=== PATIENT | male | born 1945 | race Two or more races ===

== ENCOUNTER → 2017-05-30 | Outpatient (CLI) | payer MEDICARE, OTHER ==
--- NOTE | 2017-05-31 07:50 | US ---
EXAMINATION TYPE: US kidneys/renal and bladder DATE OF EXAM: 05/30/2017 COMPARISON: CT abdomen and pelvis May 24, 2015 CLINICAL HISTORY: R10.9 Ashutosh FLank Pain C67.9 Bladder CA. Flank pain, history of bladder CA EXAM MEASUREMENTS: Right Kidney: 13.8 x 5.5 x 5.9 cm Left Kidney: 12.8 x 6.1 x 5.4 cm Right Kidney: wnl Left Kidney: Cyst lateral= 0.9 x 0.9 x 1.0 cm/ Hypoechoic lesion mid/lower pole= 0.9 x 0.6 x 1.0 cm Bladder: wnl Bilateral Jets seen: Yes Accessory spleen= 2.0 cm There is no evidence for hydronephrosis at this point in time bilaterally. No nephrolithiasis is see n. In the left kidney technologist otero 2 1.0 cm round anechoic lesions too small to further charac terize, no corresponding abnormality is seen on prior CT. Cortical thinning or infarct medially lower pole level left kidney seen better on CT than ultrasound images saved. The urinary bladder is anecho ic. Bilateral ureteral jets are seen. Technologist incidentally otero a 2.0 cm splenule inferior to spleen towards end of study. IMPRESSION: No renal stones or hydronephrosis is evident bilaterally. Would advised ultrasound or other imaging f ollow-up in 6 months time to ensure nonspecific 1 cm lesions left kidney are not enlarging.
== END ==
LOC: RADUSMAIN 15:43
PROVIDERS: ATTEND Internal Medicine
DX: C67.9 Malignant neoplasm of bladder, unspecified (principal)
CPT/HCPCS: 76770

== ENCOUNTER → 2018-10-02 | Outpatient (CLI) | payer MEDICARE, OTHER ==
--- NOTE | 2018-10-03 01:22 | MR ---
EXAMINATION TYPE: MR lumbar spine wo con DATE OF EXAM: 10/02/2018 COMPARISON: None HISTORY: Low back pain TECHNIQUE: Multiplanar, multisequence images of the lumbar spine were acquired. Lumbar vertebra have normal alignment. There is no compression fracture. There is no lumbar disc dariana iation. The neural foramina are fairly well-maintained. The posterior elements are intact. Lumbar ner ve roots appear normal. There is no spinal stenosis. There is no lumbar paraspinal mass. IMPRESSION: Negative MR scan of the lumbar spine. No lumbar disc herniation or spinal stenosis. No fracture.
== END ==
LOC: RADMRIMAIN 20:42
PROVIDERS: ATTEND Internal Medicine
DX: M54.5 Low back pain (principal)
CPT/HCPCS: 72148

== ENCOUNTER → 2019-01-26 | Outpatient (CLI) | payer MEDICARE, OTHER ==
--- NOTE | 2019-01-26 21:27 | MR ---
EXAMINATION TYPE: MR thoracic spine wo con DATE OF EXAM: 01/26/2019 COMPARISON: NONE HISTORY: Pain in thoracic spine TECHNIQUE: Multiplanar, multisequence imaging of thoracic spine is performed without contrast FINDINGS: Spinal cord shows normal course, caliber, and signal as it courses the thoracic spine. Angel tebral body heights and alignment are satisfactory. Disc space heights are fairly well maintained. No large posterior disc herniations are seen on sagittal images. There is mild multilevel anterior spur ring. Bone marrow signal intensity is maintained. Review of the axial images begins at the T1-T2 level. There are tiny central disc protrusions mildly effacing anterior thecal sac T5-T6 and T6-T7 level on axial image 7 and 4 respectively. There is 9 mm round T2 hyperintense lesion laterally right kidney partially imaged axial S1 favoring simple thin-w alled cyst. Some nonspecific nodularity right adrenal gland is seen best coronal image 4. Left adrena l nodularity noted coronal image 3. Findings correlate with CT 2015 presumed stable. IMPRESSION: Mild multilevel spurring. Small posterior disc herniations midthoracic spine noted.
== END ==
LOC: RADMRIMAIN 19:37
PROVIDERS: ATTEND Internal Medicine
DX: M51.24 Other intervertebral disc displacement, thoracic region (principal)
CPT/HCPCS: 72146

== ENCOUNTER → 2020-05-26 | Outpatient (CLI) | payer MEDICARE, OTHER ==
--- NOTE | 2020-05-26 10:10 | FL ---
EXAMINATION TYPE: FL barium swallow DATE OF EXAM: 05/26/2020 CLINICAL INDICATION: 74-year-old male dysphasia, left-sided throat pain, R13.10. COMPARISON: None Total Fluoroscopy Time: 3 minutes 9 seconds. Total images: 57 FINDINGS: Repeat swallows demonstrates deep penetration with eventual coating of the vocal folds. No aspiration below the vocal folds seen. There is anterior endplate spondylosis at C4-C5 causing impression on the posterior wall of the hypop harynx and causing mild narrowing. No obstruction to the passage of contrast. Unable to exclude a rounded filling defect at this level. There is moderate hypertrophy of the cricopharyngeus and a tiny Zenker's diverticulum which transient ly fills. The thoracic portion as a normal course and caliber. Moderate tertiary peristaltic contractions are demonstrated and with the patient is supine or prone, there is slightly delayed clearance of contrast from the esophagus. The mucosa is normal and no persistent filling defect is encountered in the thoracic esophagus. There is a tiny hiatal hernia. However, Valsalva and positional maneuvers could not elicit any gastro esophageal reflux on this exam. Median sternotomy wires. IMPRESSION: 1. Repeat swallows demonstrated deep penetration with eventual coating of the vocal folds. Consider s peech pathology evaluation. 2. Unable to exclude a rounded filling defect/mucosal lesion at the level of the hypopharynx/upper ce rvical esophagus. Correlate with findings on endoscopy. Consider contrast enhanced CT of the neck. 3. Moderate anterior endplate spondylosis at C4-C5 mildly impressing on the posterior wall of the hyp opharynx. No obstruction. 4. Moderate hypertrophy of the cricopharyngeus and a tiny Zenker's diverticulum which transiently karlie ls. 5. Moderate tertiary peristaltic contractions. The thoracic esophagus otherwise appears normal. 6. Tiny hiatal hernia. Gastroesophageal reflux could not be produced on the current exam.
== END | disposition home or self-care (01) ==
LOC: RADUSWWP 08:49
PROVIDERS: ATTEND Otolaryngology
DX: K22.5 Diverticulum of esophagus, acquired (principal); K22.8 Other specified diseases of esophagus
CPT/HCPCS: 74220

== ENCOUNTER 2020-06-09 08:19 | Day surgery (SDC) | payer MEDICARE, OTHER ==
[2020-06-08 09:20] VITALS: BMI 30.1
[~2020-06-09 08:19] MED LIST: LACTATED RINGERS 1,000 ML IV SCH
[2020-06-09 08:52] VITALS: RESP 16; TEMP 97.6
[2020-06-09] MEDS ORDERED: LIDOCAINE 1% (10MG/ML) FOR IV START INTRADERMA ONE (08:54)
[2020-06-09 08:57] LABS: Glucose,Whole Blood 199 mg/dL (75-99)
[2020-06-09] MEDS ORDERED: PROPOFOL 10 MG/ML 20 ML VIAL IV ONE (08:59)
[2020-06-09] MEDS ORDERED: LIDOCAINE 1% INJ 10MG/ML (20 ML MDV) ONE (08:59)
--- NOTE | 2020-06-09 09:31 | P.PCN ---
Date of Procedure: 06/09/20 Description of Procedure: BRIEF HISTORY: Patient is a 74-year-old male presenting for outpatient EGD for evaluation of abnormal esophagram, abnormal imaging, GERD. Patient has been having some issues with swallowing, globus sensation and soreness in his throat. Esophagram performed in evaluation was abnormal patient was sent in for further evaluation. PROCEDURE PERFORMED: Esophagogastroduodenoscopy with biopsy. PREOPERATIVE DIAGNOSIS: Abnormal esophagram, abnormal imaging, GERD. ESTIMATED BLOOD LOSS: Minimal. IV sedation per anesthesia. PROCEDURE: After informed consent was obtained, the patient was brought into the endoscopy unit. IV sedation was administered by Anesthesia under continuous monitoring. Initially the Olympus GIF-190 video endoscope was inserted into the mouth. Esophagus intubated without any difficulty. It was gradually advanced into the stomach and duodenum and carefully examined. The bulb and the second part of the duodenum appeared normal, except for some mild scattered erythema suggestive of mild duodenitis with biopsies taken. The scope at this time was withdrawn to the stomach, adequately insufflated with air, and upon careful examination, mucosa of the antrum, body, cardia and the fundus appeared normal, except for some mild scattered erythema in the antrum and body suggestive of mild gastritis biopsies taken. The scope was then withdrawn into the esophagus. The GE junction was located at 41 cm from the incisors, with biopsies taken. A 1 cm hiatal hernia was noted. The esophagus appeared normal, except for a small Zenker diverticulum in the proximal esophagus. Biopsies of the midesophagus were taken. There were no erosions or ulcerations seen and the patient tolerated the procedure well. IMPRESSION: 1. Mild gastritis. 2. Mild Duodenitis. 3. Small hiatal hernia. 4. Small Zenker diverticulum. 5. Biopsies of the duodenum, antrum and body, GE junction and mid esophagus. RECOMMENDATIONS: The findings of this examination were discussed with the patient and his family. Okay to resume diet. Okay to resume medication. Would recommend a trial of resolving daily for 2 weeks without symptoms. Await pathology from biopsies.
[2020-06-09 09:45] VITALS: BP 159/75; PULSE 61
== END 2020-06-09 09:57 | disposition home or self-care (01) ==
LOC: ORWHC2ENDO 08:19
PROVIDERS: ATTEND Internal Medicine
DX: K29.50 Unspecified chronic gastritis without bleeding (principal); B96.81 Helicobacter pylori [H. pylori] as the cause of diseases classified elsewhere; K44.9 Diaphragmatic hernia without obstruction or gangrene; K22.5 Diverticulum of esophagus, acquired; K29.80 Duodenitis without bleeding; K21.9 Gastro-esophageal reflux disease without esophagitis; I25.2 Old myocardial infarction; I25.10 Atherosclerotic heart disease of native coronary artery without angina pectoris; I10 Essential (primary) hypertension; E78.5 Hyperlipidemia, unspecified; E11.9 Type 2 diabetes mellitus without complications; F17.200 Nicotine dependence, unspecified, uncomplicated; Z85.51 Personal history of malignant neoplasm of bladder; Z79.84 Long term (current) use of oral hypoglycemic drugs; Z79.82 Long term (current) use of aspirin; Z79.899 Other long term (current) drug therapy; Z95.1 Presence of aortocoronary bypass graft; Z98.41 Cataract extraction status, right eye; Z98.42 Cataract extraction status, left eye
CPT/HCPCS: 88305; 88342; 43239; J2001; J2704

== ENCOUNTER 2020-07-27 13:53 | Emergency (ER) | payer MEDICARE, OTHER ==
[2020-07-27 14:06] VITALS: TEMP 98.1
[2020-07-27] MEDS ORDERED: SODIUM CHLORIDE 0.9% 500 ML 500 ML IV STA (14:27)
[2020-07-27] MEDS ORDERED: FAMOTIDINE 20 MG/2 ML VIAL IV STA (14:28)
[2020-07-27 15:09] LABS: Basophils % (A) 0 %; Eosinophils # (A) 0.4 k/uL (0-0.7); Eosinophils % (A) 3 %; HCT 52.9 % (39.0-53.0); HGB 16.9 gm/dL (13.0-17.5); Lymphocytes # (A) 0.7 k/uL (1.0-4.8); Lymphocytes % (A) 5 %; MCH 31.7 pg (25.0-35.0); MCHC 31.9 g/dL (31.0-37.0); MCV 99.6 fL (80.0-100.0); Mean Platelet Volume 9.1; Monocytes # (A) 0.5 k/uL (0-1.0); Monocytes % (A) 4 %; Neutrophils # (A) 11.9 k/uL (1.3-7.7); Neutrophils % (A) 87 %; Platelet Count 160 k/uL (150-450); RBC 5.32 m/uL (4.30-5.90); RDW 12.6 % (11.5-15.5); WBC 13.6 k/uL (3.8-10.6)
--- NOTE | 2020-07-27 15:11 | ED ---
General Adult HPI <Mendel Del Angel - Last Filed: 07/27/20 17:47> - General Source: patient, family, EMS Mode of arrival: EMS Limitations: language barrier <Lizette Mack - Last Filed: 07/27/20 23:01> - General Chief complaint: Allergic Reaction Stated complaint: allergic reaction Time Seen by Provider: 07/27/20 14:09 - History of Present Illness Initial comments: Patient is a 74-year-old male, history of heart disease, diabetes, hypertension, bladder cancer, presenting to the emergency Department via EMS with complaints of a possible ALLERGIC reaction. Patient speaks very little Syriac, daughter is helping to translate. Patient was at Dr. Lay's office earlier today and did receive an injection of Rocephin and Toradol for a possible abscessed tooth. The daughter states shortly after the patient started having itching in his hands and his blood pressure dropped. Patient was given a tablet of xyzal to help, then developed some chest discomfort as well as some epigastric discomfort so they called EMS. Patient had open-heart surgery in 2015. He received his last BCG treatment for bladder cancer last month. He states prior to today he was feeling his normal self. He denies any recent fever, chills, shortness of breath, cough. He denies any lower abdominal pain, trouble with urination. He does admit to nausea, no vomiting or diarrhea. Patient received some fluids and 50 mg of Benadryl and the EMS prior to arrival. He has no further complaints at this time. Upon arrival to the ER, patient's blood pressure is 101/59, rest of vitals are within normal limits. (Lizette Mack) - Related Data Home Medications Medication Instructions Recorded Confirmed Acetaminophen Tab [Tylenol] 650 mg PO Q4H PRN 11/25/15 06/08/20 Aspirin 81 mg PO DAILY 11/25/15 06/08/20 Metoprolol Succinate [Toprol XL] 50 mg PO DAILY 11/25/15 06/08/20 Antivert(Dose Unknown) 1 tab PO DIRECTED PRN 06/08/20 06/08/20 Atorvastatin [Lipitor] 20 mg PO HS 06/08/20 06/08/20 Omeprazole [PriLOSEC] 20 mg PO DIRECTED PRN 06/08/20 06/08/20 Sertraline [Zoloft] 50 mg PO HS 06/08/20 06/08/20 lisinopriL [Zestril] 5 mg PO QAM 06/08/20 06/08/20 metFORMIN HCL [Glucophage] 500 mg PO BID 06/08/20 06/08/20 Allergies Allergy/AdvReac Type Severity Reaction Status Date / Time No Known Allergies Allergy Verified 06/09/20 08:45 Review of Systems ROS Other: All systems not noted in ROS Statement are negative. <Mendel Del Angel - Last Filed: 07/27/20 17:47> ROS Other: All systems not noted in ROS Statement are negative. <Lizette Mack - Last Filed: 07/27/20 23:01> ROS Statement: Those systems with pertinent positive or pertinent negative responses have been documented in the HPI. Past Medical History Past Medical History: Coronary Artery Disease (CAD), Cancer, Diabetes Mellitus, GERD/Reflux, Hyperlipidemia, Hypertension, Myocardial Infarction (CA), Vascular Disorder Additional Past Medical History / Comment(s): HX BLADDER Cancer-(gets BCG tx) BACK PAIN. PAD. PT DRINKS 10 CUPS OF YI TEA OR COFFEE DAILY. BE showed filling defect, essential tremors Last Myocardial Infarction Date:: 1997 History of Any Multi-Drug Resistant Organisms: None Reported Past Surgical History: Bladder Surgery, Coronary Bypass/CABG, Heart Catheterization Additional Past Surgical History / Comment(s): BLADDER CA, BLADDER POLYPS REMOVED. CYSTOSCOPY YEARLY. Cardiac CATH 11/2015. CABG X5 VESSEL DONE NOVEMBER 2015, ABD AORTOGRAM W/ RUNOFF 05/02/16, 05-09-16-LT FEM-POP ARTHRECTOMY/PTBA,STENT LT SFA. Ashutosh cataracts 2015, Past Anesthesia/Blood Transfusion Reactions: Motion Sickness Past Psychological History: No Psychological Hx Reported Smoking Status: Current every day smoker Past Alcohol Use History: None Reported Past Drug Use History: None Reported - Past Family History Brother(s) Family Medical History: Cancer Sister(s) Family Medical History: Deep Vein Thrombosis (DVT) <Lizette Mack - Last Filed: 07/27/20 23:01> General Exam Limitations: language barrier <Lizette Mack - Last Filed: 07/27/20 23:01> - General Exam Comments Initial Comments: GENERAL: Patient is well-developed and well-nourished. Patient looks slightly diaphoretic, fatigued, in no acute distress. HEAD: Atraumatic, normocephalic. EYES: Pupils equal round and reactive to light, extraocular movements intact, sclera anicteric, conjunctiva are normal. Eyelids were unremarkable. ENT: TMs normal, nares patent, oropharynx clear without exudates. Moist mucous membranes. NECK: Normal range of motion, supple without lymphadenopathy or JVD. LUNGS: Unlabored respirations. Breath sounds clear to auscultation bilaterally and equal. No wheezes rales or rhonchi. HEART: Regular rate and rhythm without murmurs, rubs or gallops. ABDOMEN: Very mild epigastric discomfort, no other static and abdominal pain present. Soft, normoactive bowel sounds. No guarding, no rebound. No masses appreciated. : Deferred MUSCULOSKELETAL: Normal extremities with adequate strength and normal range of motion, no pitting or edema. No clubbing or cyanosis. NEUROLOGICAL: Patient is alert and oriented x 3. Motor and sensory are also intact. Cranial nerves II through XII grossly intact. Symmetrical smile. Normal speech, normal gait. PSYCH: Normal mood, normal affect. SKIN: Warm, Dry, normal turgor, no rashes or lesions noted. (Lizette Mack) Course <Mendel Del Angel - Last Filed: 07/27/20 17:47> Vital Signs 07/27/20 07/27/20 07/27/20 14:01 15:06 15:17 Temperature 98.1 F Pulse Rate 71 68 Respiratory 18 18 16 Rate Blood Pressure 101/59 128/72 O2 Sat by Pulse 98 98 Oximetry 07/27/20 07/27/20 07/27/20 16:00 17:00 17:50 Temperature 98.1 F Pulse Rate 65 66 66 Respiratory 16 16 16 Rate Blood Pressure 122/73 133/70 133/70 O2 Sat by Pulse 98 98 98 Oximetry - Reevaluation(s) Reevaluation #1: 07/27/20 17:47 PG supervision: I proceeded [id number] evaluation the patient. Patient did present with complaints of possible ALLERGIC reaction after getting Rocephin in his doctor's office patient has a history ofmultiple medical issues. Patient is awake alert oriented. No acute distress at this time. I did discuss the case with the son-in-law who is Dr. Lay who was in the room with the patient. Patient be discharged with his son-in-law. Do the assessment and plan. (Mendel Del Angel) EKG Findings - EKG Comments: EKG Findings:: Normal sinus rhythm, left axis deviation, incomplete RBBB, no signs of acute ischemia. Compared to previous on 05/09/2016. Ventricular rate 69, NV 192, QT 358. <Lizette Mack - Last Filed: 07/27/20 23:01> Medical Decision Making - Lab Data Result diagrams: 07/27/20 14:56 07/27/20 15:50 <Mendel Del Angel - Last Filed: 07/27/20 17:47> - Lab Data Result diagrams: 07/27/20 14:56 07/27/20 15:50 <Lizette Mack - Last Filed: 07/27/20 23:01> - Medical Decision Making Patient is a 74-year-old male here for possible ALLERGIC reaction to IM Toradol and Rocephin given today at his PCPs office. Patient received 50 mg of Benadryl and the EMS prior to arrival. Patient was slightly diaphoretic, fatigued upon arrival, his vitals were stable. His EKG showed no acute findings. Blood work revealed a slight leukocytosis at 13.6, coags are normal, troponin is normal, kidney function is normal. Chest x-ray shows no acute findings, urine is normal. Patient received some fluids, Pepcid, reports improvement of symptoms. I did discuss these findings with the patient and his father in law, Dr. Lay who did come in to see the patient, and I did recommend observation over patient is feeling well like to go home. Dr. Lay is also okay with patient being discharged and states he will reevaluate the patient tonight. Strict return parameters were discussed with them and they both verbalized understanding. Case discussed with Dr. Del Angel. (Lizette Mack) - Lab Data Lab Results 07/27/20 07/27/20 07/27/20 Range/Units 14:56 14:56 14:56 WBC 13.6 H (3.8-10.6) k/uL RBC 5.32 (4.30-5.90) m/uL Hgb 16.9 (13.0-17.5) gm/dL Hct 52.9 (39.0-53.0) % MCV 99.6 (80.0-100.0) fL MCH 31.7 (25.0-35.0) pg MCHC 31.9 (31.0-37.0) g/dL RDW 12.6 (11.5-15.5) % Plt Count 160 (150-450) k/uL Neutrophils % 87 % Lymphocytes % 5 % Monocytes % 4 % Eosinophils % 3 % Basophils % 0 % Neutrophils # 11.9 H (1.3-7.7) k/uL Lymphocytes # 0.7 L (1.0-4.8) k/uL Monocytes # 0.5 (0-1.0) k/uL Eosinophils # 0.4 (0-0.7) k/uL Basophils # 0.0 (0-0.2) k/uL PT 10.6 (9.0-12.0) sec INR 1.0 (<1.2) APTT 22.7 (22.0-30.0) sec Sodium (137-145) mmol/L Potassium (3.5-5.1) mmol/L Chloride (98-107) mmol/L Carbon Dioxide (22-30) mmol/L Anion Gap mmol/L BUN (9-20) mg/dL Creatinine (0.66-1.25) mg/dL Est GFR (CKD-EPI)AfAm (>60 ml/min/1.73 sqM) Est GFR (CKD-EPI)NonAf (>60 ml/min/1.73 sqM) Glucose (74-99) mg/dL Calcium (8.4-10.2) mg/dL Magnesium (1.6-2.3) mg/dL Total Bilirubin (0.2-1.3) mg/dL AST (17-59) U/L ALT (4-49) U/L Alkaline Phosphatase (38-126) U/L Troponin I <0.012 (0.000-0.034) ng/mL Total Protein (6.3-8.2) g/dL Albumin (3.5-5.0) g/dL Lipase (23-300) U/L Urine Color Urine Appearance (Clear) Urine pH (5.0-8.0) Ur Specific [place] (1.001-1.035) Urine Protein (Negative) Urine Glucose (UA) (Negative) Urine Ketones (Negative) Urine Blood (Negative) Urine Nitrite (Negative) Urine Bilirubin (Negative) Urine Urobilinogen (<2.0) mg/dL Ur Leukocyte Esterase (Negative) Urine RBC (0-5) /hpf Urine WBC (0-5) /hpf Ur Squamous Epith Cells (0-4) /hpf Hyaline Casts (0-2) /lpf Urine Mucus (None) /hpf 07/27/20 07/27/20 Range/Units 15:50 16:03 WBC (3.8-10.6) k/uL RBC (4.30-5.90) m/uL Hgb (13.0-17.5) gm/dL Hct (39.0-53.0) % MCV (80.0-100.0) fL MCH (25.0-35.0) pg MCHC (31.0-37.0) g/dL RDW (11.5-15.5) % Plt Count (150-450) k/uL Neutrophils % % Lymphocytes % % Monocytes % % Eosinophils % % Basophils % % Neutrophils # (1.3-7.7) k/uL Lymphocytes # (1.0-4.8) k/uL Monocytes # (0-1.0) k/uL Eosinophils # (0-0.7) k/uL Basophils # (0-0.2) k/uL PT (9.0-12.0) sec INR (<1.2) APTT (22.0-30.0) sec Sodium 137 (137-145) mmol/L Potassium 6.0 H (3.5-5.1) mmol/L Chloride 105 (98-107) mmol/L Carbon Dioxide 26 (22-30) mmol/L Anion Gap 6 mmol/L BUN 13 (9-20) mg/dL Creatinine 1.15 (0.66-1.25) mg/dL Est GFR (CKD-EPI)AfAm 74 (>60 ml/min/1.73 sqM) Est GFR (CKD-EPI)NonAf 64 (>60 ml/min/1.73 sqM) Glucose 137 H (74-99) mg/dL Calcium 9.5 (8.4-10.2) mg/dL Magnesium 1.4 L (1.6-2.3) mg/dL Total Bilirubin 2.3 H (0.2-1.3) mg/dL AST 47 (17-59) U/L ALT 19 (4-49) U/L Alkaline Phosphatase 64 (38-126) U/L Troponin I (0.000-0.034) ng/mL Total Protein 7.1 (6.3-8.2) g/dL Albumin 4.2 (3.5-5.0) g/dL Lipase 167 (23-300) U/L Urine Color Yellow Urine Appearance Cloudy (Clear) Urine pH 6.0 (5.0-8.0) Ur Specific [place] 1.019 (1.001-1.035) Urine Protein 1+ H (Negative) Urine Glucose (UA) Negative (Negative) Urine Ketones Negative (Negative) Urine Blood Negative (Negative) Urine Nitrite Negative (Negative) Urine Bilirubin Negative (Negative) Urine Urobilinogen <2.0 (<2.0) mg/dL Ur Leukocyte Esterase Trace H (Negative) Urine RBC 2 (0-5) /hpf Urine WBC 5 (0-5) /hpf Ur Squamous Epith Cells 1 (0-4) /hpf Hyaline Casts 44 H (0-2) /lpf Urine Mucus Moderate H (None) /hpf Disposition <Mendel Del Angel - Last Filed: 07/27/20 17:47> Is patient prescribed a controlled substance at d/c from ED?: No <Lizette Mack - Last Filed: 07/27/20 23:01> Clinical Impression: Allergic reaction to drug, Epigastric pain, Atypical chest pain Disposition: HOME SELF-CARE Condition: Stable Instructions (If sedation given, give patient instructions): Acute Nausea and Vomiting (ED) Additional Instructions: Please return to the Emergency Department if symptoms worsen or any other concerns. Increase her fluid intake over the next few days. Follow-up with PCP. Referrals: Lety Lay MD [Primary Care Provider] - 1-2 days
[2020-07-27 15:18] VITALS: RESP 16
[2020-07-27 15:18] LABS: Partial Thromboplastin Time 22.7 sec (22.0-30.0); Prothrombin Time 10.6 sec (9.0-12.0)
--- NOTE | 2020-07-27 15:56 | XR ---
EXAMINATION TYPE: XR chest 2V DATE OF EXAM: 07/27/2020 COMPARISON: NONE HISTORY: Allergic reaction. Chest pain. TECHNIQUE: Frontal and lateral views of the chest are obtained. FINDINGS: Overlying sternal wire and mediastinal clips are present. There is chronic parenchymal pete nges bilaterally without suspicious focal air space opacity, pleural effusion, or pneumothorax seen. The cardiac silhouette size is enlarged. Post CABG changes with mediastinal clips and sternal wire s are present. The osseous structures are intact. IMPRESSION: Chronic changes and cardiomegaly without acute pulmonary process.
[2020-07-27 16:09] LABS: Albumin 4.2 g/dL (3.5-5.0); Calcium 9.5 mg/dL (8.4-10.2); Magnesium 1.4 mg/dL (1.6-2.3); Total Bilirubin 2.3 mg/dL (0.2-1.3); Total Protein 7.1 g/dL (6.3-8.2)
[2020-07-27 16:12] LABS: Appearance,Urine Cloudy (Clear); Bilirubin,Urine Negative (Negative); Blood,Urine Negative (Negative); Color,Urine Yellow; Glucose,Urine (UA) Negative (Negative); Hyaline Casts,Urine 44 /lpf (0-2); Ketones,Urine Negative (Negative); Leukocyte Esterase,Urine Trace (Negative); Mucus,Urine Moderate /hpf; Nitrite,Urine Negative (Negative); Protein,Urine 1+ (Negative); RBC,Urine 2 /hpf (0-5); Specific Gravity,Urine 1.019 (1.001-1.035); Squamous Epithelial Cell,Urine 1 /hpf (0-4); Urobilinogen,Urine <2.0 mg/dL (<2.0); WBC,Urine 5 /hpf (0-5)
[2020-07-27 17:50] VITALS: BP 133/70; PULSE 66
== END 2020-07-27 17:53 | disposition home or self-care (01) ==
LOC: EC 13:53
DX: T45.0X1A Poisoning by antiallergic and antiemetic drugs, accidental (unintentional), initial encounter (principal); R07.89 Other chest pain; R10.13 Epigastric pain; D72.829 Elevated white blood cell count, unspecified; I25.10 Atherosclerotic heart disease of native coronary artery without angina pectoris; I10 Essential (primary) hypertension; E78.5 Hyperlipidemia, unspecified; I25.2 Old myocardial infarction; E11.51 Type 2 diabetes mellitus with diabetic peripheral angiopathy without gangrene; K21.9 Gastro-esophageal reflux disease without esophagitis; F17.200 Nicotine dependence, unspecified, uncomplicated; Z79.82 Long term (current) use of aspirin; Z79.899 Other long term (current) drug therapy; Z79.84 Long term (current) use of oral hypoglycemic drugs; Z95.1 Presence of aortocoronary bypass graft; Z85.51 Personal history of malignant neoplasm of bladder
CPT/HCPCS: 36415; 71046; 80053; 81001; 83690; 83735; 84484; 85025; 85610; 85730; 93005; 96374; 99284

== ENCOUNTER → 2020-07-28 | Outpatient (CLI) | payer MEDICARE, OTHER ==
--- NOTE | 2020-07-28 16:46 | US ---
EXAMINATION TYPE: US kidneys/renal and bladder DATE OF EXAM: 07/28/2020 COMPARISON: US kidneys and bladder 05/30/2017 CLINICAL HISTORY: Z85.51 HX of Bladder Cancer. EXAM MEASUREMENTS: Right Kidney: 12.0 x 5.7 x 6.0 cm Left Kidney: 12.3 x 5.7 x 3.4 cm Right Kidney: No hydronephrosis. Benign simple cyst measuring 1.2 cm. Left Kidney: No hydronephrosis. Benign simple cyst measuring 1.7 cm. There is an exophytic isoechoic lesion of the interpolar kidney measuring 1.0 x 0.7 x 1.0 cm, previously measuring 0.9 x 0.6 x 1.0 cm on 05/30/2017 comparison. Bladder: Normal. Bilateral Jets seen: Yes IMPRESSION: 1. Left renal 1.0 cm exophytic isoechoic lesion likely represents solid renal mass. This lesion is un changed in size versus 05/30/2017 ultrasound comparison. Recommend follow-up ultrasound in one year fo r stability. 2. Unremarkable urinary bladder.
== END | disposition home or self-care (01) ==
LOC: RADUSWWP 12:59
PROVIDERS: ATTEND Internal Medicine
DX: N28.9 Disorder of kidney and ureter, unspecified (principal); Z85.51 Personal history of malignant neoplasm of bladder
CPT/HCPCS: 76770

== ENCOUNTER → 2021-04-12 | Outpatient (CLI) | payer MEDICARE, OTHER ==
--- NOTE | 2021-04-12 13:13 | US ---
EXAMINATION TYPE: US kidneys/renal and bladder DATE OF EXAM: 04/12/2021 COMPARISON: 07/28/2020 CLINICAL HISTORY: N28.9 KNOWN RENAL DISEASE LT KIDNEY MASS. Renal mass EXAM MEASUREMENTS: Right Kidney: 13.5 x 4.6 x 5.4 cm Left Kidney: 11.9 x 5.6 x 5.1 cm Right Kidney: Cystic area upper pole 1.0 x 1.2 x 1.2 cm. Left Kidney: Cystic area mid pole 1.6 x 1.2 x 1.5cm; isoechoic lesion exophytic arising from interpol ar region/ lower pole 1.1 x .7 x .9 cm, previously measured 1.0 x 0.7 cm Bladder: Not well evaluated due to underdistention. Irregularity and wall thickening is most likely d ue to underdistention. Bilateral Jets seen: no There is no evidence for hydronephrosis at this point in time. No nephrolithiasis is seen. IMPRESSION: 1. Unchanged isoechoic lesion exophytic from the interpolar region/lower pole of the left kidney. 2. Urinary bladder is not well evaluated and if there is clinical concern, repeat imaging is recommen ded with full urinary bladder.
== END | disposition home or self-care (01) ==
LOC: RADUSWWP 09:57
PROVIDERS: ATTEND Internal Medicine
DX: N28.9 Disorder of kidney and ureter, unspecified (principal)
CPT/HCPCS: 76770

== ENCOUNTER 2022-12-29 22:36 | Emergency (ER) | payer MEDICARE, OTHER ==
[2022-12-29 22:44] VITALS: TEMP 97.9
--- NOTE | 2022-12-29 23:00 | ED ---
Chest Pain HPI - General Chief Complaint: Chest Pain Stated Complaint: Chest Pain Time Seen by Provider: 12/29/22 22:49 Source: patient Mode of arrival: ambulatory Limitations: no limitations - History of Present Illness Initial Comments: 77-year-old male past history of coronary artery disease status post coronary bypass, hypertension, hyperlipidemia who presents to the emergency department with chest pain. Son is at bedside and provides majority of the history. Patient was doing some work at a house where there was a strong smell of "animals". He immediately started feeling nauseated and had an episode of vomiting. He then had a second episode of vomiting on the way home. He felt a slight twinge in his chest. He does have a history of significant cardiac disease and therefore he made mention of this to his son. He did not want to come up to the hospital however son was concerned. Chest pain is alleviated by the time the patient comes the hospital. Has no further vomiting and reports that his symptoms feel markedly improved. He denies fevers, chills or cough. No ripping or tearing sensation to his back. No numbness, thinning or weakness in his extremities. He did have an appointment with his commercial director on Saturday and had a clean bill of health. No other alleviating, precipitating or modifying factors - Related Data Home Medications Medication Instructions Recorded Confirmed Acetaminophen Tab [Tylenol] 650 mg PO Q4H PRN 11/25/15 06/08/20 Aspirin 81 mg PO DAILY 11/25/15 06/08/20 Metoprolol Succinate [Toprol XL] 50 mg PO DAILY 11/25/15 06/08/20 Antivert(Dose Unknown) 1 tab PO DIRECTED PRN 06/08/20 06/08/20 Atorvastatin [Lipitor] 20 mg PO HS 06/08/20 06/08/20 Omeprazole [PriLOSEC] 20 mg PO DIRECTED PRN 06/08/20 06/08/20 Sertraline [Zoloft] 50 mg PO HS 06/08/20 06/08/20 lisinopriL [Zestril] 5 mg PO QAM 06/08/20 06/08/20 metFORMIN HCL [Glucophage] 500 mg PO BID 06/08/20 06/08/20 Allergies Allergy/AdvReac Type Severity Reaction Status Date / Time No Known Allergies Allergy Verified 06/09/20 08:45 Review of Systems ROS Statement: Those systems with pertinent positive or pertinent negative responses have been documented in the HPI. ROS Other: All systems not noted in ROS Statement are negative. EKG Findings - EKG Comments: EKG Findings:: EKG demonstrates a sinus rhythm with a rate of 62. MT interval 217. QRS 117. QTC is 391. There is a right bundle branch block. Left anterior fascicular block. No ST segment elevation. EKG morphology similar to previous Past Medical History Past Medical History: Coronary Artery Disease (CAD), Cancer, Diabetes Mellitus, GERD/Reflux, Hyperlipidemia, Hypertension, Myocardial Infarction ([place]), Vascular Disorder Additional Past Medical History / Comment(s): HX BLADDER Cancer-(gets BCG tx) BACK PAIN. PAD. PT DRINKS 10 CUPS OF BULGARIAN TEA OR COFFEE DAILY. BE showed f illing defect, essential tremors Last Myocardial Infarction Date:: 1997 History of Any Multi-Drug Resistant Organisms: None Reported Past Surgical History: Bladder Surgery, Coronary Bypass/CABG, Heart Catheterization Additional Past Surgical History / Comment(s): BLADDER CA, BLADDER POLYPS REMOVED. CYSTOSCOPY YEARLY. Cardiac CATH 11/2015. CABG X5 VESSEL DONE NOVEMBER 2015, ABD AORTOGRAM W/ RUNOFF 05/02/16, 05-09-16-LT FEM-POP ARTHRECTOMY/PTBA,STENT LT SFA. Ashutosh cataracts 2015, Past Anesthesia/Blood Transfusion Reactions: Motion Sickness Past Psychological History: No Psychological Hx Reported Smoking Status: Current every day smoker Past Alcohol Use History: None Reported Past Drug Use History: None Reported - Past Family History Brother(s) Family Medical History: Cancer Sister(s) Family Medical History: Deep Vein Thrombosis (DVT) General Exam Limitations: no limitations General appearance: alert, in no apparent distress Head exam: Present: atraumatic, normocephalic, normal inspection Eye exam: Present: normal appearance, PERRL, EOMI. Absent: scleral icterus, conjunctival injection, periorbital swelling ENT exam: Present: normal exam, mucous membranes moist Neck exam: Present: normal inspection. Absent: tenderness, meningismus, lymphadenopathy Respiratory exam: Present: normal lung sounds bilaterally. Absent: respiratory distress, wheezes, rales, rhonchi, stridor Cardiovascular Exam: Present: regular rate, normal rhythm, normal heart sounds. Absent: systolic murmur, diastolic murmur, rubs, gallop, clicks GI/Abdominal exam: Present: soft, normal bowel sounds. Absent: distended, tenderness, guarding, rebound, rigid Extremities exam: Present: normal inspection, full ROM, normal capillary refill. Absent: tenderness, pedal edema, joint swelling, calf tenderness Back exam: Present: normal inspection Neurological exam: Present: alert, oriented X3, CN II-XII intact Psychiatric exam: Present: normal affect, normal mood Skin exam: Present: warm, dry, intact, normal color. Absent: rash Course Vital Signs 12/29/22 12/29/22 12/29/22 22:40 23:03 23:30 Temperature 97.9 F Pulse Rate 69 61 66 Respiratory 20 17 22 Rate Blood Pressure 168/73 138/65 O2 Sat by Pulse 96 94 L Oximetry 12/30/22 00:00 Temperature Pulse Rate 62 Respiratory 17 Rate Blood Pressure 143/68 O2 Sat by Pulse 95 Oximetry Chest Pain MDM - MDM Was pt. sent in by a medical professional or institution (, PA, INDEPENDENT TRADER, urgent care, hospital, or care home...) When possible be specific @ -No Did you speak to anyone other than the patient for history (EMS, parent, family, police, friend...)? What history was obtained from this source @ -Son Did you review nursing and triage notes (agree or disagree)? Why? @ -I reviewed and agree with nursing and triage notes Were old charts reviewed (outside hosp., previous admission, EMS record, old EKG, old radiological studies, urgent care reports/EKG's, care home records)? Report findings @ - old charts were reviewed Differential Diagnosis (chest pain, altered mental status, abdominal pain women, abdominal pain men, vaginal bleeding, weakness, fever, dyspnea, syncope, headache, dizziness, GI bleed, back pain, seizure, CVA, palpatations, mental health, musculoskeletal)? @ -ACS, NSTEMI, STEMI, coronary vasospasm, gastritis EKG interpreted by me (3pts min.). @ -As above X-rays interpreted by me (1pt min.). @ -yes CT interpreted by me (1pt min.). @ -None done U/S interpreted by me (1pt. min.). @ -None done What testing was considered but not performed or refused? (CT, X-rays, U/S, labs)? Why? @ -None What meds were considered but not given or refused? Why? @ -None Did you discuss the management of the patient with other professionals (professionals i.e. , PA, INDEPENDENT TRADER, lab, RT, psych nurse, social service director, professional tutor, teacher, retirement officer, gearcase assembler)? Give summary @ -No Was smoking cessation discussed for >3mins.? @ -yes Was critical care preformed (if so, how long)? @ -no Were there social determinants of health that impacted care today? How? (Homelessness, low income, unemployed, alcoholism, drug addiction, transportation, low edu. Level, literacy, decrease access to med. care, half-way, rehab)? @ -No Was there de-escalation of care discussed even if they declined (Discuss DNR or withdrawal of care, Hospice)? DNR status @ -No What co-morbidities impacted this encounter? (DM, HTN, Smoking, COPD, CAD, Cancer, CVA, ARF, Chemo, Hep., AIDS, mental health diagnosis, sleep apnea, morbid obesity)? @ -CAD Was patient admitted / discharged? Hospital course, mention meds given and route, prescriptions, significant lab abnormalities, going to OR and other pertinent info. @ -Upon arrival patient is placed into room 5. A thorough history and physical exam was performed. Patient is hooked to continuous pulse ox and cardiac monitoring. 12-lead EKG was obtained and is compared to previous. Laboratory studies are conducted and reviewed. Troponin is negative. Chest x-ray demonstrates no acute process. Results are discussed with the patient. I i strongly recommended admission. Patient is adamant that he wants to go home as he is symptom free. Discussed the risks of leaving to include permanent disability and even . Patient is aware of these risks and wants to go home. Son is at bedside and is agreeable with his decision. Recommended a follow-up with his commercial director as soon as possible. Return for any new or worsening symptoms or should he agree to hospital admission. Patient agreeable to this and was discharged home in stable condition with guarded prognosis Undiagnosed new problem with uncertain prognosis? @ -yes Drug Therapy requiring intensive monitoring for toxicity (Heparin, Nitro, Insulin, Cardizem)? @ -No Were any procedures done? @ -No Diagnosis/symptom? @ -acute chest pain, acute nausea Acute, or Chronic, or Acute on Chronic? @ -acute Uncomplicated (without systemic symptoms) or Complicated (systemic symptoms)? @ -complicated Side effects of treatment? @ -no Exacerbation, Progression, or Severe Exacerbation? @ -no Poses a threat to life or bodily function? How? (Chest pain, [place], [place], pneumonia, PE, COPD, DKA, ARF, appy, cholecystitis, CVA, Diverticulitis, Homicidal, Suicid al, threat to staff... and all critical care pts) @ -yes Disposition Clinical Impression: Chest pain Disposition: HOME SELF-CARE Condition: Stable Instructions (If sedation given, give patient instructions): Chest Pain (ED) Additional Instructions: I recommended hospital admission. You should take magnesium oxide 400 mg daily and have your labs rechecked. Please follow-up with the commercial director on Saturday and return for any new or worsening symptoms Is patient prescribed a controlled substance at d/c from ED?: No Referrals: Lety Lay MD [Primary Care Provider] - 1-2 days Ericka Vergara MD [STAFF PHYSICIAN] - 1-2 days Time of Disposition: 00:06
[2022-12-29 23:10] LABS: Basophils % (A) 0 %; Eosinophils # (A) 0.2 k/uL (0-0.7); Eosinophils % (A) 2 %; Lymphocytes % (A) 10 %; MCH 32.9 pg (25.0-35.0); MCHC 34.1 g/dL (31.0-37.0); MCV 96.6 fL (80.0-100.0); Mean Platelet Volume 9.6; Monocytes # (A) 0.5 k/uL (0-1.0); Monocytes % (A) 5 %; Neutrophils # (A) 7.8 k/uL (1.3-7.7); Neutrophils % (A) 82 %; Platelet Count 159 k/uL (150-450); RBC 4.86 m/uL (4.30-5.90); RDW 12.3 % (11.5-15.5); WBC 9.5 k/uL (3.8-10.6)
[2022-12-29 23:21] LABS: ALT 30 U/L (4-49); AST 26 U/L (17-59); African American GFR (CKD) >90 (>60 ml/min/1.73 sqM); Albumin 4.8 g/dL (3.5-5.0); Alkaline Phosphatase 65 U/L (38-126); Anion Gap 9 mmol/L; Blood Urea Nitrogen 22 mg/dL (9-20); Calcium 9.4 mg/dL (8.4-10.2); Carbon Dioxide 25 mmol/L (22-30); Chloride 104 mmol/L (98-107); Glucose 173 mg/dL (74-99); Lipase 176 U/L (23-300); Magnesium 1.4 mg/dL (1.6-2.3); Non-African American GFR(CKD) 88 (>60 ml/min/1.73 sqM); Potassium 4.9 mmol/L (3.5-5.1); Sodium 138 mmol/L (137-145); Total Bilirubin 1.5 mg/dL (0.2-1.3); Total Protein 7.3 g/dL (6.3-8.2)
[2022-12-29 23:24] LABS: INR 1.1 (<1.2); Partial Thromboplastin Time 22.4 sec (22.0-30.0); Prothrombin Time 11.3 sec (9.0-12.0)
--- NOTE | 2022-12-29 23:25 | XR ---
EXAMINATION TYPE: XR chest 2V DATE OF EXAM: 12/29/2022 11:17 PM COMPARISON: Chest radiographs from 07/19/2020 TECHNIQUE: XR chest 2V Frontal and lateral views of the chest. CLINICAL INDICATION:Male, 77 years old with history of Chest Pain; FINDINGS: Lungs/Pleura: Prominent interstitial lung markings are seen scattered throughout the lungs. No eviden ce of focal consolidation, pneumothorax or pleural effusion. Pulmonary vascularity: Unremarkable. Heart/mediastinum: Cardiomediastinal silhouette is unremarkable. Musculoskeletal: No acute osseous pathology. Midline sternotomy wires are noted. IMPRESSION: Chronic changes without acute pulmonary process. No significant change from prior.
[2022-12-30 00:09] VITALS: BP 143/68; PULSE 62; RESP 17
== END 2022-12-30 00:16 | disposition home or self-care (01) ==
LOC: EC 22:36
DX: R07.9 Chest pain, unspecified (principal); E11.9 Type 2 diabetes mellitus without complications; I10 Essential (primary) hypertension; I25.10 Atherosclerotic heart disease of native coronary artery without angina pectoris; I25.2 Old myocardial infarction; E78.5 Hyperlipidemia, unspecified; K21.9 Gastro-esophageal reflux disease without esophagitis; F17.200 Nicotine dependence, unspecified, uncomplicated; Z79.84 Long term (current) use of oral hypoglycemic drugs; Z79.82 Long term (current) use of aspirin; Z79.899 Other long term (current) drug therapy; Z95.1 Presence of aortocoronary bypass graft
CPT/HCPCS: 36415; 71046; 80053; 83690; 83735; 83880; 84484; 85025; 85610; 85730; 93005; 99285

== ENCOUNTER → 2023-01-18 | Outpatient (CLI) | payer MEDICARE, OTHER ==
--- NOTE | 2023-01-18 10:59 | XR ---
Exam: Right hand 2 views Date: 01/18/2023 Comparison: None Clinical History: Pain. Technique: AP and lateral views of the right hand were obtained. Findings: There is no acute fracture. There is no dislocation. There are scattered degenerative changes of the interphalangeal joints and a few metacarpophalangeal joints per there are no erosive changes or perio stitis. There is normal alignment of the carpal bones. There is no radiopaque foreign body per Impression: Degenerative changes without acute fracture or dislocation.
--- NOTE | 2023-01-20 11:30 | CT ---
EXAMINATION TYPE: CT angio neck CT DLP: 385.6 mGycm, Automated exposure control for dose reduction was used. DATE OF EXAM: 01/18/2023 11:20 AM COMPARISON: None. CLINICAL INDICATION:Male, 77 years old with history of I65.29 carotid stenosis; PHH, carotid stenosis TECHNIQUE: Axially acquired helical CT angiogram of the neck was obtained with contrast. Axial images are supplemented with 3D reconstructions which were post-processed at an independent workstation. NA SCET criteria used. Contrast used:65cc mL of Isovue 370 with IV Contrast, Oral contrast used: None. FINDINGS: CTA NECK: Right Carotid System: The common carotid and external carotid arteries are patent. There is approximately 25-50% stenosis a t the carotid bifurcation secondary to calcified/noncalcified plaquing. The rest of the internal menjivar tid artery is patent. Left Carotid System: The common carotid and external carotid arteries are patent. There is approximately 60 % stenosis at the carotid bifurcation secondary to calcified/noncalcified plaquing. The proximal internal carotid a rtery illustrates focal segment of at least 50% stenosis as well. Vertebral arteries are patent without evidence hemodynamically significant stenosis. Calcified plaque at the origin of left vertebral artery without significant stenosis. Scattered calcified plaque pres ent throughout the visualized vertebral arteries. The intracranial portions also demonstrates scatter ed atherosclerotic plaque. There is a three-vessel aortic arch. The origins of the great vessels are patent. No evidence of hemo dynamically significant stenosis. Atherosclerosis of the aortic arch without hemodynamically signific ant stenosis. 25-50% stenosis of the origin of the left subclavian artery with soft and calcified abraham que present. Upper thorax: No focal consolidation, pneumothorax or pleural effusion. No suspicious pulmonary nodul es. IMPRESSION: 1. No evidence of dissection of the cervical internal carotid arteries or vertebral arteries 2. Atherosclerosis of the carotid bifurcations with at least 25-50% stenosis at the bifurcation of t he right and 60% stenosis at the carotid bifurcation on the left. 3. There is at least 50% stenosis of the proximal portion of the left internal carotid artery. 4. 25-50% stenosis of the origin of the left subclavian artery secondary to soft and calcified plaqu e
== END | disposition home or self-care (01) ==
LOC: RADCTMAIN 10:29
PROVIDERS: ATTEND Internal Medicine Interventional Cardiology
DX: I65.23 Occlusion and stenosis of bilateral carotid arteries (principal); M19.041 Primary osteoarthritis, right hand
CPT/HCPCS: 73120; 70498; Q9967